=== PATIENT | male | born 1985 | race Caucasian/White ===

== ENCOUNTER → 2019-02-16 | Emergency (ER) | payer SELFPAY ==
[~2019-02-16] MED LIST: Ketorolac INJ* 30 MG/ML 1 ML VIAL IM ONE; oxyCODONE/Acetamin 5/325 MG* TAB PO ONE
[2019-02-16 02:46] LABS: ABS Basophils 0.1 10^3/ul (0-0.2); ABS Eosinophils 0.2 10^3/ul (0-0.6); ABS Lymphocytes 1.9 10^3/ul (1.0-4.8); ABS Monocytes 0.6 10^3/ul (0-0.8); ABS Neutrophils 4.6 10^3/ul (1.5-7.7); Eosinophil % 2.1 %; Hematocrit 42 % (42-52); Hemoglobin 14.5 g/dL (14.0-18.0); Lymphocyte % 25.8 %; Mean Corpuscular HGB Conc 34 g/dL (31-36); Mean Corpuscular Hemoglobin 31 pg (27-31); Mean Corpuscular Volume 90 fL (80-94); Nucleated Red Blood Cells % 0.1; Platelet Count 303 10^3/uL (150-450); Red Blood Count 4.71 10^6 /uL (4.18-5.48); Red Cell Distribution Width 13 % (10-15); White Blood Count 7.3 10^3/uL (3.5-10.8)
[2019-02-16 03:09] LABS: ALT 15 U/L (7-52); AST 16 U/L (13-39); Albumin 4.9 g/dL (3.2-5.2); Alkaline Phosphatase 79 U/L (34-104); Anion Gap 8 mmol/L (2-11); BUN/Creatinine Ratio 7.3 (8-20); Blood Urea Nitrogen 6 mg/dL (6-24); C Reactive Protein < 1.00 mg/L (<8.01); CO2 Carbon Dioxide 25 mmol/L (22-32); Calcium 9.7 mg/dL (8.6-10.3); Chloride 105 mmol/L (101-111); Creatine Kinase 89 U/L (10-223); EGFR African American 130.9 (>60); EGFR Non-African American 108.2 (>60); Globulin 2.4 g/dL (2-4); Glucose 120 mg/dL (70-100); Potassium 3.6 mmol/L (3.5-5.0); Sodium 138 mmol/L (135-145); Total Protein 7.3 g/dL (6.4-8.9)
--- NOTE | 2019-02-16 03:31 | ED ---
Lower Extremity - HPI Summary HPI Summary: This patient is a 33 year old M presenting to [facility] with a chief complaint of right lower extremity pain from the right ankle to right knee since 1600 yesterday. Pt states he woke up at 1600 yesterday with the pain. Pt notes he has a nerve graft in his right leg. 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 The patient rates the pain 7/10 in severity. Symptoms aggravated by nothing. Symptoms alleviated by rest. Patient reports ability to ambulate without use of devices. Patient denies sensation in right lower extremity. - History of Current Complaint Chief Complaint: EDExtremityLower Stated Complaint: GRAFT IN LEF AND IS PAINFUL DONE TWO YEARS AGO PT Time Seen by Provider: 02/16/19 02:14 Hx Obtained From: Patient Onset of Pain: Hours - 10 Onset/Duration: Hours - 10 Severity Initially: Severe Severity Currently: Severe Pain Intensity: 7 Pain Scale Used: 0-10 Numeric Timing: Constant Location: Other - from right ankle to right knee Associated Signs And Symptoms: Positive: Negative Aggravating Factor(s): Nothing Alleviating Factor(s): Rest Able to Bear Weight: Yes - pt able to walk - Allergies/Home Medications Allergies/Adverse Reactions: Allergies Allergy/AdvReac Type Severity Reaction Status Date / Time No Known Allergies Allergy Verified 02/16/19 00:17 PMH/Surg Hx/FS Hx/Imm Hx Previously Healthy: No Sensory History: Denies: Hx Cataracts, Hx Legally Blind EENT History: Denies: Hx Deafness, Hx Auditory Problems - Surgical History Surgical History: Yes Surgery Procedure, Year, and Place: graft done on right leg 2 years ago Infectious Disease History: No Infectious Disease History: Denies: Traveled Outside the [place] in Last 30 Days - Family History Known Family History: Positive: None - Social History Alcohol Use: None Hx Substance Use: Yes Substance Use Type: Reports: Marijuana Substance Use Comment - Amount & Last Used: "off and on, recovering addict" Hx Tobacco Use: Yes Smoking Status (MU): Light Every Day Tobacco Smoker Review of Systems Negative: Fever Musculoskeletal: Other - positive - right lower extremity pain from right ankle to right knee All Other Systems Reviewed And Are Negative: Yes Physical Exam - Summary Physical Exam Summary: VITAL SIGNS: Reviewed. GENERAL: Patient is a well-developed and nourished MALE who is lying comfortable in the stretcher. Patient is not in any acute respiratory distress. HEAD AND FACE: No signs of trauma. No ecchymosis, hematomas or skull depressions. No sinus tenderness. EYES: PERRLA, EOMI x 2, No injected conjunctiva, no nystagmus. EARS: Hearing grossly intact. Ear canals and tympanic membranes are within normal limits. MOUTH: Oropharynx within normal limits. NECK: Supple, trachea is midline, no adenopathy, no JVD, no carotid bruit, no c- spine tenderness, neck with full ROM CHEST: Symmetric, no tenderness at palpation LUNGS: Clear to auscultation bilaterally. No wheezing or crackles. CVS: Regular rate and rhythm, S1 and S2 present, no murmurs or gallops appreciated. ABDOMEN: Soft, non-tender. No signs of distention. No rebound no guarding, and no masses palpated. Bowel sounds are normal. EXTREMITIES: Right leg is soft, non-tender, no inflammatory signs. Neurovascular exam intact in right leg. FROM in all major joints, no edema, no cyanosis or clubbing. NEURO: Alert and oriented x 3. No acute neurological deficits. Speech is normal and follows commands. SKIN: Dry and warm Triage Information Reviewed: Yes Vital Signs On Initial Exam: Initial Vitals Temp Pulse Resp BP Pulse Ox 99.5 F 95 18 157/101 97 02/16/19 00:10 02/16/19 00:10 02/16/19 00:10 02/16/19 00:10 02/16/19 00:10 Vital Signs Reviewed: Yes Diagnostics - Vital Signs Vital Signs Temp Pulse Resp BP Pulse Ox 02/16/19 00:10 99.5 F 95 18 157/101 97 - Laboratory Lab Results: Lab Results 02/16/19 02/16/19 Range/Units 02:38 02:38 WBC 7.3 (3.5-10.8) 10^3/uL RBC 4.71 (4.18-5.48) 10^6 /uL Hgb 14.5 (14.0-18.0) g/dL Hct 42 (42-52) % MCV 90 (80-94) fL MCH 31 (27-31) pg MCHC 34 (31-36) g/dL RDW 13 (10-15) % Plt Count 303 (150-450) 10^3/uL MPV 8.0 (7.4-10.4) fL Neut % (Auto) 63.6 % Lymph % (Auto) 25.8 % Cassia % (Auto) 7.7 % Eos % (Auto) 2.1 % Baso % (Auto) 0.8 % Absolute Neuts (auto) 4.6 (1.5-7.7) 10^3/ul Absolute Lymphs (auto) 1.9 (1.0-4.8) 10^3/ul Absolute Monos (auto) 0.6 (0-0.8) 10^3/ul Absolute Eos (auto) 0.2 (0-0.6) 10^3/ul Absolute Basos (auto) 0.1 (0-0.2) 10^3/ul Absolute Nucleated RBC 0.0 10^3/ul Nucleated RBC % 0.1 Sodium 138 (135-145) mmol/L Potassium 3.6 (3.5-5.0) mmol/L Chloride 105 (101-111) mmol/L Carbon Dioxide 25 (22-32) mmol/L Anion Gap 8 (2-11) mmol/L BUN 6 (6-24) mg/dL Creatinine 0.82 (0.67-1.17) mg/dL Est GFR ( Amer) 130.9 (>60) Est GFR (Non-Af Amer) 108.2 (>60) BUN/Creatinine Ratio 7.3 L (8-20) Glucose 120 H (70-100) mg/dL Calcium 9.7 (8.6-10.3) mg/dL Total Bilirubin 0.60 (0.2-1.0) mg/dL AST 16 (13-39) U/L ALT 15 (7-52) U/L Alkaline Phosphatase 79 (34-104) U/L Total Creatine Kinase 89 (10-223) U/L C-Reactive Protein < 1.00 (<8.01) mg/L Total Protein 7.3 (6.4-8.9) g/dL Albumin 4.9 (3.2-5.2) g/dL Globulin 2.4 (2-4) g/dL Albumin/Globulin Ratio 2.0 (1-3) Result Diagrams: 02/16/19 02:38 02/16/19 02:38 Lab Statement: Any lab studies that have been ordered have been reviewed, and results considered in the medical decision making process. Lower Extremity Course/Dx - Course Course Of Treatment: This patient is a 33 year old M presenting to [facility] with a chief complaint of right lower extremity pain from the right ankle to right knee since 1600 yesterday. Pt states he woke up at 1600 yesterday with the pain. Pt notes he has a nerve graft in his right leg. 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 The patient rates the pain 7/10 in severity. Symptoms aggravated by nothing. Symptoms alleviated by rest. Patient reports ability to ambulate without use of devices. Patient denies sensation in right lower extremity. Physical exam shows right leg is soft, non-tender, no inflammatory signs, and neurovascular exam is intact in the right leg. Lab results show BUN/creatinine ratio 7.3, glucose 120. During ED course, the pt was given Toradol INJ and Percocet. Dx is leg pain. Pt is agreeable to discharge. Pt was told to follow up with a primary care provider within 1-2 days and to return to the ED for any new or worsening symptoms. - Diagnoses Provider Diagnoses: Leg pain Discharge - Sign-Out/Discharge Documenting (check all that apply): Patient Departure - discharge Patient Received Moderate/Deep Sedation with Procedure: No - Discharge Plan Prescriptions: Ibuprofen TAB* [Motrin TAB* 800 MG] 800 mg PO Q6H PRN #30 tab PRN Reason: Pain Patient Education Materials: Leg Pain (ED) Referrals: No Primary Care Phys,NOPCP [Primary Care Provider] - [facility] [Outside] - 1 Day Additional Instructions: Follow up with a primary care provider within 1-2 days. Return to the ED for any new or worsening symptoms. - Attestation Statements Document Initiated by Scribe: Yes Documenting Scribe: Kleber Luque Provider For Whom [place] is Documenting (Include Credential): Dr. Jennifer Thomas MD Scribe Attestation: Kleber Chester scribed for Dr. Jennifer Thomas MD on 02/16/19 at 0434. Status of Scribe Document: Ready
[2019-02-16 03:51] VITALS: BP 177/107
== END | disposition home or self-care (01) ==
LOC: ED
DX: M79.604 Pain in right leg (principal); F17.210 Nicotine dependence, cigarettes, uncomplicated
CPT/HCPCS: 36415; 80053; 82550; 85025; 86140; 96372; 99283; A9270-GY; J1885